=== PATIENT | female | born 1980 | race Caucasian/White ===

== ENCOUNTER 2017-09-29 14:23 | Emergency (ER) | payer BC, OTHER ==
[~2017-09-29] VITALS: Ht 162.6 cm; Wt 62.3 kg
[~2017-09-29 14:23] MED LIST: CARB1SOL8 OT; PRENTAB26 PO
[2017-09-29 14:31] VITALS: Ht 162.6 cm; Wt 62.3 kg
[2017-09-29] MEDS ORDERED: ONDANSETRON INJ 2 MG/ML 2 ML VIAL IV STA (14:51)
[2017-09-29] MEDS ORDERED: KETOROLAC TROMETHAMINE 30 MG/ML VIAL IV STA (14:51)
[2017-09-29] MEDS ORDERED: SODIUM CHLORIDE 0.9% 1000ML 1,000 ML IV STA (14:51)
--- NOTE | 2017-09-29 14:55 | EMERGENCY ROOM VISIT NOTE ---
History Report prepared by Judy: Anisha Orosco Under the Supervision of: Dr. Héctor Reveles M.D. First contact with patient: 14:35 Chief Complaint: DEHYDRATION Stated Complaint: DEHYDRATED,VOMTING,NAUSEA,DIARRHEA-SENT Nursing Triage Summary: pt reports NVD that started this AM , PCP sent in for poss dehydration History of Present Illness The patient is a 36 year old white female with no past medical history who presents to the ED with a cc of constant nausea beginning this morning. The patient states that she woke up early this morning at 0200 and has had constant nausea with intermittent vomiting and diarrhea all day. She reports that she has had 2 episodes of diarrhea. This afternoon she notes that she saw her family doctor that sent her into the ED. Positive fever, heart racing and cough. Negative recent travel, abdominal pain, chest pain, .hematemesis, and blood in the stool. She notes that her LNMP was 1 month ago. She was on an antibiotic for a UTI but finished the medication a few weeks ago . The patient states that her daughter just got over the GI bug. She notes that she did get a flu shot this season. Source of History: patient Onset: this morning Position: other (global) Quality: other (nausea ) Timing: constant Associated Symptoms: + cough, + vomiting, No chest pain, No abdominal pain Note: Positive heart racing. Negative recent travel, hematemesis, and blood in the stool. Review of Systems See HPI for pertinent positives and negatives. A total of ten systems were reviewed and were otherwise negative. Past Medical & Surgical Medical Problems: (1) section Family History No pertinent family history stated. Social History Smoking Status: Never Smoker Marital Status: Housing Status: lives with family Occupation Status: unemployed Current/Historical Medications Scheduled PRN Ondansetron Hcl (Zofran), 4 MG PO Q8H PRN for Nausea Allergies Coded Allergies: Codeine (Verified Adverse Reaction, Mild, GI SYMPTOMS, 09/29/17) NAUSEA VOMITTING Oxycodone (Verified Adverse Reaction, Mild, GI SYMPTOMS, 09/29/17) NAUSEA/VOMITTING Physical Exam Vital Signs Date Time Temp Pulse Resp B/P (MAP) Pulse Ox O2 Delivery O2 Flow Rate FiO2 09/29/17 16:54 36.8 94 18 93/50 97 Room Air 09/29/17 16:37 96 09/29/17 15:56 37.5 103 18 113/61 95 Room Air 09/29/17 14:31 37.6 120 20 102/65 100 Room Air Physical Exam GENERAL: Awake, alert, nontoxic-appearing, NAD HENT: Normocephalic, atraumatic. EYES: Normal conjunctiva. Sclera non-icteric. NECK: Supple. No nuchal rigidity. FROM. RESPIRATORY: CTAB, no rhonchi, wheezing, crackles CARDIAC: Tachycardic and regular, no MRG ABDOMEN: Soft, NTND, BS+ MSK: No chest wall TTP, no LE edema, No CVA TTP NEURO: GCS 15, CN 2-12 intact, moves all 4s on command SKIN: No rash or jaundice noted. Medical Decision & Procedures ER Provider Diagnostic Interpretation: X-ray: Per my interpretation, radiologist review. CHEST ONE VIEW PORTABLE FINDINGS: The bones soft tissues and hemidiaphragms are normal. The cardiomediastinal silhouette is normal. The lungs are clear. The pulmonary vasculature is normal. IMPRESSION: Negative chest. The above report was generated using voice recognition software. It may contain grammatical, syntax or spelling errors. Electronically signed by: Fernandez Prado M.D. 09/29/2017 3:09 PM Dictated Date/Time: 09/29/2017 3:09 PM Laboratory Results 09/29/17 15:21 Red Blood Count 4.64, Mean Corpuscular Volume 90.7, Mean Corpuscular Hemoglobin 31.9, Mean Corpuscular Hemoglobin Concent 35.2, Mean Platelet Volume 10.2, Neutrophils (%) (Auto) 88.6, Lymphocytes (%) (Auto) 4.8, Monocytes (%) (Auto) 6.4, Eosinophils (%) (Auto) 0.0, Basophils (%) (Auto) 0.1, Neutrophils # (Auto) 6.06, Lymphocytes # (Auto) 0.33, Monocytes # (Auto) 0.44, Eosinophils # (Auto) 0.00, Basophils # (Auto) 0.01 09/29/17 15:21 Test 09/29/17 15:21 White Blood Count 6.85 K/uL (4.8-10.8) Red Blood Count 4.64 M/uL (4.2-5.4) Hemoglobin 14.8 g/dL (12.0-16.0) Hematocrit 42.1 % (37-47) Mean Corpuscular Volume 90.7 fL (80-100) Mean Corpuscular Hemoglobin 31.9 pg (25-34) Mean Corpuscular Hemoglobin Concent 35.2 g/dl (32-36) Platelet Count 202 K/uL (130-400) Mean Platelet Volume 10.2 fL (7.4-10.4) Neutrophils (%) (Auto) 88.6 % Lymphocytes (%) (Auto) 4.8 % Monocytes (%) (Auto) 6.4 % Eosinophils (%) (Auto) 0.0 % Basophils (%) (Auto) 0.1 % Neutrophils # (Auto) 6.06 K/uL (1.4-6.5) Lymphocytes # (Auto) 0.33 K/uL (1.2-3.4) Monocytes # (Auto) 0.44 K/uL (0.11-0.59) Eosinophils # (Auto) 0.00 K/uL (0-0.5) Basophils # (Auto) 0.01 K/uL (0-0.2) RDW Standard Deviation 43.1 fL (36.4-46.3) RDW Coefficient of Variation 13.0 % (11.5-14.5) Immature Granulocyte % (Auto) 0.1 % Immature Granulocyte # (Auto) 0.01 K/uL (0.00-0.02) Urine Color DK YELLOW Urine Appearance CLEAR (CLEAR) Urine pH 6.0 (4.5-7.5) Urine Specific [place] 1.032 (1.000-1.030) Urine Protein NEG (NEG) Urine Glucose (UA) NEG (NEG) Urine Ketones 3+ (NEG) Urine Occult Blood NEG (NEG) Urine Nitrite NEG (NEG) Urine Bilirubin NEG (NEG) Urine Urobilinogen NEG (NEG) Urine Leukocyte Esterase NEG (NEG) Urine Test NEG (NEG) Anion Gap 7.0 mmol/L (3-11) Est Creatinine Clear Calc Drug Dose 82.7 ml/min Estimated GFR () 107.5 Estimated GFR (Non- 92.7 BUN/Creatinine Ratio 18.1 (10-20) Calcium Level 8.8 mg/dl (8.5-10.1) Phosphorus Level 2.8 mg/dl (2.5-4.9) Magnesium Level 1.5 mg/dl (1.8-2.4) Total Bilirubin 0.9 mg/dl (0.2-1) Direct Bilirubin 0.2 mg/dl (0-0.2) Aspartate Amino Transf (AST/SGOT) 10 U/L (15-37) Alanine Aminotransferase (ALT/SGPT) 17 U/L (12-78) Alkaline Phosphatase 70 U/L (45-117) Total Protein 8.0 gm/dl (6.4-8.2) Albumin 4.3 gm/dl (3.4-5.0) Lipase 74 U/L (73-393) Laboratory results reviewed by me Medications Administered Medications (Trade) Dose Ordered Sig/Prabha Route Start Time Stop Time Status Last Admin Dose Admin Ondansetron HCl (Zofran Inj) 4 mg NOW STAT IV 09/29/17 14:51 09/29/17 14:53 DC 09/29/17 15:20 4 MG Ketorolac Tromethamine (Toradol Inj) 30 mg NOW STAT IV 09/29/17 14:51 09/29/17 14:53 DC 09/29/17 15:20 30 MG Sodium Chloride 1,000 ml @ 999 mls/hr Q1H1M STAT IV 09/29/17 14:51 09/29/17 15:51 DC 09/29/17 15:20 999 MLS/HR Magnesium Oxide (Mag-Ox Tab) 800 mg ONE STAT PO 09/29/17 16:08 09/29/17 16:23 DC 09/29/17 16:25 800 MG Potassium Chloride (Klor-Con M10) 40 meq NOW STAT PO 09/29/17 16:08 09/29/17 16:23 DC 09/29/17 16:25 40 MEQ ECG Indication: vomiting Rate (beats per minute): 97 Rhythm: sinus rhythm Findings: T-wave inversion (isolated inversion in lead 3), other (no other STS changes or TWI, normal intervals normal axis) ED Course 1435: The patient was evaluated in room C2. A complete history and physical exam was performed. 2: I reevaluated the patient and updated her. She is doing well. 1700: I reevaluated the patient. Discussed results and discharge instructions: She verbalized understanding and agreement. The patient is ready for discharge. Medical Decision The patient is a 36 year old white female with no past medical history who presents to the ED with a cc of constant nausea beginning this morning. Differential diagnosis: Etiologies such as gastroenteritis, food borne illness, infections, appendicitis , diverticulitis, inflammatory bowel disease, obstruction, GI bleed, biliary pathology, as well as others were entertained. Patient was seen and evaluated the bedside. Patient had complained of repeated episodes of vomiting with some nausea. Patient states that she did take antibiotics several weeks prior for UTI. Patient denies any urinary symptoms. Patient's LMP was in August she states that is normal. Patient on exam has no CVA tenderness to palpation and no abdominal pain. Patient did have blood work completed, EKG, urinalysis, UPT, and the patient was given medications and IV fluids for symptom control. WBC WNL. Kidney function normal. HypoK and hypoMg noted. Given repletement. Upon re eval feeling improved. UA neg for infection, +ketones likely 2/2 to dehydration. Tachycardia improved. Patient feeling improved. Non surgical abdomen. Labs reassuring. Don't believe patient needs further imaging or trx at this time. Deemed suitable for outpatient f/u and trx. Given f/u, d/c, and return precautions and d/c'ed to home. Medication Reconcilliation Current Medication List: was personally reviewed by me Blood Pressure Screening Patient's blood pressure: Normal blood pressure Blood pressure disposition: Did not require urgent referral Impression Primary Impression: Gastroenteritis Additional Impressions: Hypokalemia Hypomagnesemia Dehydration Scribe Attestation The scribe's documentation has been prepared under my direction and personally reviewed by me in its entirety. I confirm that the note above accurately reflects all work, treatment, procedures, and medical decision making performed by me. Departure Information Dispostion Home / Self-Care Prescriptions Ondansetron Hcl (ZOFRAN) 4 Mg Tab 4 MG PO Q8H Y for Nausea, #12 TAB Prov: Héctor Reveles M.D. 09/29/17 Referrals No Doctor, Assigned (PCP) Patient Instructions Dehydration, ED Gastroenteritis Non Infec, Hypomagnesemia [place], My [facility] Additional Instructions Please return to the emergency department if you have worsening or recurrent symptoms not amenable to at-home treatment. Please call for a follow-up appointment with her primary care physician. Please take your medications as prescribed. If you have other concerns and/or complaints please feel free to also call your primary care physician's office or return the ED for further evaluation, management, and treatment. Consider a bland diet and clear liquids. Please avoid things like alcohol, tobacco, or citrus, or spicy foods. Please hydrate with liberal amounts of fluid and advance her diet as tolerated. Take your medications as prescribed. You have been examined and treated today on an emergency basis only. This is not a substitute for, or an effort to provide, complete comprehensive medical care. It is impossible to recognize and treat all injuries or illnesses in a single emergency department visit. It is therefore important that you follow up closely with [facility], your PCP, and/or your specialist(s). Call as soon as possible for an appointment. Thank you for your time and consideration. I look forward to speaking with you again soon. Please don't hesitate to call us if you have any questions. Problem Qualifiers
--- NOTE | 2017-09-29 15:10 | DIAGNOSTIC IMAGING REPORT ---
CHEST ONE VIEW PORTABLE CLINICAL HISTORY: ABDOMINAL PAIN/GI pain. Nausea. COMPARISON STUDY: No previous studies for comparison. FINDINGS: The bones soft tissues and hemidiaphragms are normal. The cardiomediastinal silhouette is normal. The lungs are clear. The pulmonary vasculature is normal. IMPRESSION: Negative chest. The above report was generated using voice recognition software. It may contain grammatical, syntax or spelling errors. Electronically signed by: Fernandez Prado M.D. 09/29/2017 3:09 PM Dictated Date/Time: 09/29/2017 3:09 PM
[2017-09-29 15:38] LABS: BASO % 0.1 %; BASO ABS # 0.01 K/uL (0-0.2); HEMATOCRIT 42.1 % (37-47); HEMOGLOBIN 14.8 g/dL (12.0-16.0); IG# 0.01 K/uL (0.00-0.02); LYMPH % 4.8 %; LYMPH ABS # 0.33 K/uL (1.2-3.4); MEAN CELL VOLUME 90.7 fL (80-100); MEAN CORPUSCULAR HEMOGLOBIN 31.9 pg (25-34); MEAN CORPUSCULAR HGB CONC 35.2 g/dl (32-36); MEAN PLATELET VOLUME 10.2 fL (7.4-10.4); MONO % 6.4 %; MONO ABS # 0.44 K/uL (0.11-0.59); NEUT % 88.6 %; NEUT ABS # 6.06 K/uL (1.4-6.5); PLATELET COUNT 202 K/uL (130-400); RED CELL DISTRIBUTION WIDTH SD 43.1 fL (36.4-46.3); WHITE BLOOD COUNT 6.85 K/uL (4.8-10.8)
[2017-09-29 16:04] LABS: ALBUMIN 4.3 gm/dl (3.4-5.0); CALCIUM 8.8 mg/dl (8.5-10.1); CREATININE 0.82 mg/dl (0.60-1.20); POTASSIUM 3.1 mmol/L (3.5-5.1)
[2017-09-29 16:07] LABS: PHOSPHORUS 2.8 mg/dl (2.5-4.9)
[2017-09-29] MEDS ORDERED: POTASSIUM CHLORIDE 10 MEQ TABCR PO STA (16:08)
[2017-09-29] MEDS ORDERED: MAGNESIUM OXIDE 400 MG TAB PO STA (16:08)
[2017-09-29] MEDS ORDERED: POTASSIUM CHLORIDE 10 MEQ TABCR ONE (16:21)
[2017-09-29 16:54] VITALS: BP 93/50; PULSE 94; TEMP 36.8; O2SAT 97
[2017-09-29] MEDS ORDERED: ONDA4TAB46 PO (16:55)
== END 2017-09-29 17:14 | disposition home or self-care (01) ==
LOC: C.EDB 14:24 → C.EDC 17:14
DX: K52.9 Noninfective gastroenteritis and colitis, unspecified (principal); E87.6 Hypokalemia; E83.42 Hypomagnesemia; E86.0 Dehydration